=== PATIENT | female | born 1950 | race American Indian/Alaskan Native ===

== ENCOUNTER 2019-12-10 15:40 | Outpatient (CLI) | payer MEDICARE ==
[2019-12-19 08:25] LABS: Vitamin D, 25-OH, D2 SEE SCANNED RESULT
== END 2019-12-10 15:41 | disposition home or self-care (01) ==
LOC: LAB 15:40
PROVIDERS: ATTEND Specialist
DX: G93.41 Metabolic encephalopathy (principal); E07.9 Disorder of thyroid, unspecified
CPT/HCPCS: 36415; 82306; 82607; 82747; 83921; 84443

== ENCOUNTER 2021-11-27 20:15 | Emergency (ER) | payer MEDICARE ==
[2021-11-27 23:00] LABS: Albumin 3.5 g/dL (3.9-5)
[2021-11-27 23:26] LABS: Bacteria,Urine 1+ /HPF (Negative)
[2021-11-27 23:35] LABS: Color,Urine Yellow (Yellow)
[2021-11-27 23:41] LABS: Basophils % (Auto) 0.4 % (0.0-1.8); Eosinophils % (Auto) 0.5 % (0.0-4.3); Hematocrit 44.2 % (30.3-42.9); Hemoglobin 14.7 gm/dl (10.1-14.3); Lymphocytes # (Auto) 2.7 K/mm3 (1.2-5.4); Lymphocytes % (Auto) 29.4 % (13.4-35.0); Mean Corpuscular HGB Conc 33 % (30-34); Mean Corpuscular Volume 81 fl (79-97); Monocytes # (Auto) 0.5 K/mm3 (0.0-0.8); Monocytes % (Auto) 5.9 % (0.0-7.3); Platelet Count 183 K/mm3 (140-440); Red Blood Count 5.45 M/mm3 (3.65-5.03); Red Cell Distribution Width 14.4 % (13.2-15.2)
== END 2021-11-28 05:55 | disposition left against medical advice (07) ==
LOC: ED 20:15
DX: R11.0 Nausea (principal); Z53.21 Procedure and treatment not carried out due to patient leaving prior to being seen by health care provider
CPT/HCPCS: 36415; 80053; 81001; 83690; 85025; 87086